=== PATIENT | female | born 1960 | race Caucasian/White ===

== ENCOUNTER 2017-12-18 08:53 | Emergency (ER) | payer OTHER ==
[2017-12-18] MEDS ORDERED: MECLIZINE HCL 12.5 MG TAB ONE (09:40)
[2017-12-18] MEDS ORDERED: NA CHLORIDE 0.9% 1,000 ML ONE (09:40)
--- NOTE | 2017-12-18 10:07 | RAD REPORT ---
EXAM DESCRIPTION: CT - Head Brain Wo Cont - 12/18/2017 9:55 am CLINICAL HISTORY: Dizziness, syncope. COMPARISON: 06/24/2012 TECHNIQUE: All CT scans are performed using dose optimization technique as appropriate and may inclu de automated exposure control or mA/KV adjustment according to patient size. FINDINGS: No intracranial hemorrhage, hydrocephalus or extra-axial fluid collection.No areas of brai n edema or evidence of midline shift. Mild mucoperiosteal thickening is present in the sphenoid sinus. The paranasal sinuses and mastoids a re otherwise clear. The calvarium is intact. IMPRESSION: No acute intracranial abnormality.
[2017-12-18 10:10] LABS: Absolute Lymphocytes (CBC) 2.7 K/uL (0.7-4.9); Absolute Monocytes 0.6 K/uL (0.1-1.3); Absolute Neutrophil 4.2 K/uL (1.8-8.0); Basophils % 0.2 % (0-1.3); Hematocrit 40.7 % (36.0-45.0); Lymphocytes % 35.4 % (15.3-44.8); MCH 29.4 pg (27.0-35.0); MCV 88.1 fL (80-100); MPV 7.6 fL (7.6-11.3); Monocytes % 8.6 % (3.3-12.3); RBC Red Blood Cell Count 4.61 M/uL (3.86-4.86)
[2017-12-18 10:14] LABS: Protime INR 1.08
[2017-12-18 10:23] LABS: Potassium 3.6 mEq/L (3.6-5.0)
[2017-12-18 10:29] LABS: Bilirubin Direct 0.1 mg/dL (0-0.2); Bilirubin Total 0.7 mg/dL (0.3-1.2); Magnesium 1.9 mg/dL (1.8-2.5); Protein, Total 7.2 g/dL (6.0-8.3)
[2017-12-18 10:32] LABS: CKMB Creatine Kinase MB 1.7 ng/ml (0.3-4.0)
--- NOTE | 2017-12-18 10:38 | RAD REPORT ---
EXAM DESCRIPTION: Nitish Single View12/18/2017 10:02 am CLINICAL HISTORY: Chest pain COMPARISON: 2016 FINDINGS: The lungs appear clear of acute infiltrate. The heart is normal size. Old rib fractures a re seen. Pleural thickening is unchanged. IMPRESSION: No acute abnormalities displayed
--- NOTE | 2017-12-18 11:43 | RAD REPORT ---
EXAM DESCRIPTION: MRI - Brain Wo Cont - 12/18/2017 11:27 am CLINICAL HISTORY: Dizziness and syncope COMPARISON: December 18, [address] TECHNIQUE: Axial, sagittal, and coronal magnetic images of the brain were obtained. Contrast was not requested FINDINGS: No significant abnormal signal is present within the brain. Diffusion-weighted/ADC mapping does not reveal evidence of acute infarction. The ventricles are normal caliber. An extra-axial fluid collection is not present Fluid is present within the sphenoid sinus. IMPRESSION: Fluid within the sphenoid sinus may indicate acute sinusitis. Unremarkable unenhanced brain MRI
[2017-12-18 13:17] LABS: Urine Blood 1+ (NEG); Urine Glucose NEGATIVE (NEG); Urine Protein NEGATIVE (NEG); Urine Specific Gravity 1.015 (1.005-1.030)
[2017-12-18] MEDS ORDERED: CEFTRIAXONE/SWI 1gm 1 GM/10 ML SYR ONE (13:40)
--- NOTE | 2017-12-18 13:40 | ER ---
Nurse's Notes [facility] Name: Guerita Rivas Age: 57 yrs Sex: Female : 1960 Arrival Date: 12/18/2017 Time: 08:55 Bed 13 Private MD: out of town, doctor Diagnosis: Acute sinusitis;Paresthesia of skin-Right Arm and Leg;Vertigo Presentation: 12/18 09:16 Presenting complaint: Patient states: dizzyness for months, worse the past month, dx ch with vertigo. had a dizzy spell last night so badly she fell to the floor, landed on her hands and knees. this morning pt started getting tingling in R arm and R leg at 0830, had a sharp headache, then dizzyness, sharp pain in R ear. c/o nausea for days. Transition of care: patient was not received from another setting of care. Onset of symptoms was December 17, 2017 at 18:00. Risk Assessment: Do you want to hurt yourself or someone else? Patient reports no desire to harm self or others. Initial Sepsis Screen: Does the patient meet any 2 criteria? No. Patient's initial sepsis screen is negative. Does the patient have a suspected source of infection? No. Patient's initial sepsis screen is negative. Care prior to arrival: None. 09:16 Method Of Arrival: Ambulatory 09:16 Acuity: RADHA 3 ch Triage Assessment: 09:21 General: Appears in no apparent distress. comfortable, Behavior is calm, cooperative, ch appropriate for age. Pain: Complains of pain in head and back Pain currently is 3 out of 10 on a pain scale. Neuro: Level of Consciousness is awake, alert, obeys commands, Oriented to person, place, time, situation, Disability Examiner are equal bilaterally Moves all extremities. Full function Gait is steady, Speech is normal, Facial symmetry appears normal, Facial symmetry: tongue is midline, Pupils are PERRLA, Reports dizziness, headache numbness tingling in R arm and leg. Respiratory: Airway is patent Respiratory effort is even, unlabored, Breath sounds are clear bilaterally. GI: Reports nausea. Derm: Skin is pink, warm \\T\\ dry. Historical: - Allergies: 09:21 No Known Allergies; ch - Home Meds: 09:21 Effexor Oral [Active]; metoprolol tartrate 25 mg Oral tab 1 tab as needed for feeling ch palpatations/pvc [Active]; - PMHx: 09: pvc; Hepatitis; "in remission"; Back pain; ch - PSHx: 09: Cholecystectomy; Tubal ligation; ch - Immunization history:: Adult Immunizations up to date, Last tetanus immunization: up to date Pneumococcal vaccine is not up to date, Flu vaccine is up to date. - Social history:: Smoking status: Patient/guardian denies using tobacco, Patient/guardian denies using alcohol, street drugs. - Ebola Screening: : Patient negative for fever greater than or equal to 101.5 degrees Fahrenheit, and additional compatible Ebola Virus Disease symptoms Patient denies exposure to infectious person Patient denies travel to an Ebola-affected area in the 21 days before illness onset No symptoms or risks identified at this time. Screenin:23 Abuse screen: Denies threats or abuse. Denies injuries from another. Nutritional ch screening: No deficits noted. Tuberculosis screening: No symptoms or risk factors identified. Fall Risk None identified. Assessment: 09:23 Reassessment: Patient appears in no apparent distress at this time. No changes from previously documented assessment. Patient and/or family updated on plan of care and expected duration. Pain level reassessed. GI: Abdomen is round non-distended, Bowel sounds present X 4 quads. Abd is soft and non tender X 4 quads. Reports nausea. 10:45 Reassessment: Patient appears in no apparent distress at this time. Patient and/or ch family updated on plan of care and expected duration. Pain level reassessed. Patient is alert, oriented x 3, equal unlabored respirations, skin warm/dry/pink. Patient states feeling better. Patient states symptoms have improved. General: Appears in no apparent distress. comfortable, Behavior is calm, cooperative, appropriate for age. 11:40 Reassessment: Patient appears in no apparent distress at this time. Patient and/or ch family updated on plan of care and expected duration. Pain level reassessed. Patient is alert, oriented x 3, equal unlabored respirations, skin warm/dry/pink. Patient states feeling better. Patient states symptoms have improved. 13:30 Reassessment: Patient appears in no apparent distress at this time. Patient and/or ch family updated on plan of care and expected duration. Pain level reassessed. Patient is alert, oriented x 3, equal unlabored respirations, skin warm/dry/pink. Patient states feeling better. Patient states symptoms have improved. 13:44 Reassessment: Patient appears in no apparent distress at this time. Patient and/or ch family updated on plan of care and expected duration. Pain level reassessed. Patient is alert, oriented x 3, equal unlabored respirations, skin warm/dry/pink. Vital Signs: 09:21 BP 134 / 80; Pulse 62; Resp 14; Temp 97.9; Pulse Ox 99% on R/A; Weight 78.02 kg; Height ch 6 ft. (182.88 cm); Pain 3/10; 10:45 BP 124 / 76; Pulse 65; Resp 14; Temp 97.9; Pulse Ox 99% on R/A; Pain 0/10; ch 11:30 BP 109 / 66 LA Supine (auto/); Pulse 77; ch 11:32 BP 111 / 83 LA Sitting (auto/); Pulse 85; ch 11:34 BP 118 / 75 LA Standing (auto/); Pulse 85; Resp 14; Temp 97.9; Pulse Ox 98% on R/A; Pain 0/10; 12:30 BP 128 / 65; Pulse 82; Resp 15; Pulse Ox 100% on R/A; mh5 13:12 BP 127 / 63; Pulse 86; Resp 17; Pulse Ox 99% on R/A; mh5 14:38 BP 126 / 78; Pulse 78; Resp 18; Temp 98.21; Pulse Ox 99% on R/A; Pain 0/10; ch 09:21 Body Mass Index 23.33 (78.02 kg, 182.88 cm) ED Course: 08:55 Patient arrived in ED. mr 08:56 out of town, doctor is Private Physician. mr 09:09 Brigitte Mallory, FREDO is Primary Nurse. ch 09:13 Mike Lew PA is PHCP. cp 09:13 Adal Charles MD is Attending Physician. cp 09:19 Triage completed. ch 09:21 Arm band placed on left wrist. Patient placed in an exam room, on a stretcher. ch 09:23 No apparent distress. Resting quietly. ch 09:23 Patient has correct armband on for positive identification. Placed in gown. Bed in low ch position. Call light in reach. Side rails up X 1. secured entrance monitor on. Pulse ox on. NIBP on. Warm blanket given. 09:23 No provider procedures requiring assistance completed. ch 09:43 EKG done, by technology coordinator. reviewed by Mike MURPHY. at1 09:53 CT completed. Patient tolerated procedure well. Patient moved to CT via wheelchair. sw Patient moved back from CT. 09:56 CT Head Brain wo Cont In Process Unspecified. EDMS 09:59 Inserted saline lock: 18 gauge in right forearm, using aseptic technique. Blood ch collected. 10:00 X-ray completed. Patient tolerated procedure well. jb2 10:01 XRAY Chest (1 view) In Process Unspecified. EDMS 10:59 Patient moved to MRI via wheelchair. em2 11:26 MRI completed. Patient tolerated well. Patient moved back from MRI. em2 11:27 MRI - Brain Wo Cont In Process Unspecified. EDMS 13:36 Gume Simms MD is Referral Physician. cp 14:38 IV discontinued, intact, bleeding controlled, No redness/swelling at site. Pressure ch dressing applied. Administered Medications: 09:59 Drug: Meclizine 25 mg Route: PO; ch 13:30 Follow up: Response: No adverse reaction; Marked relief of symptoms ch 11:42 Drug: NS 0.9% 1000 ml Route: IV; Rate: 1 bolus; Site: right forearm; ch 14:37 Follow up: IV Status: Completed infusion; IV Intake: 1000ml ch 13:45 Drug: Rocephin - (cefTRIAXone) 1 grams Route: IVPB; Infused Over: 10 mins; Site: left ch antecubital; 14:37 Follow up: IV Status: Completed infusion; IV Intake: 10ml ch Intake: 14:37 IV: 10ml; Total: 10ml. ch 14:37 IV: 1000ml; Total: 1010ml. ch Outcome: 13:40 Discharge ordered by . cp 14:38 Discharged to home ambulatory, with family. ch 14:38 Condition: stable 14:38 Discharge instructions given to patient, family, friend, Instructed on discharge instructions, follow up and referral plans. medication usage, Demonstrated understanding of instructions, follow-up care, medications, Prescriptions given X 3. 14:39 Patient left the ED. ch Signatures: Dispatcher [employer] EDMS Brigitte Mallory RN Olga Espana ch mr Ajmanny, Hector jb2 Geoff Manning em2 Nydia meléndez, electrotyper EKG Tat1 Bonnie Warren Corey, PA PA cp Martinez, Maria [facility]
--- NOTE | 2017-12-18 13:40 | EDPHYS ---
Physician Documentation [facility] Name: Guerita Rivas Age: 57 yrs Sex: Female : 1960 Arrival Date: 12/18/2017 Time: 08:55 Bed 13 Private MD: out of town, doctor ED Physician Adal Charles HPI: 12/18 09:20 This 57 yrs old Female presents to ER via Ambulatory with complaints of cp Dizziness, Nausea, Headache. 09:20 The patient presents with vertigo. Onset: The symptoms/episode began/occurred last cp year, has been intermittent, returned over past 2-3 days and became worse this morning. 09:20 Associated signs and symptoms: Pertinent positives: nausea, paresthesias of right arm cp and leg started this morning at 0830, Pertinent negatives: chest pain, diaphoresis, focal weakness, near-syncope, palpitations, syncope. Severity of symptoms: in the emergency department the symptoms have improved mildly. Patient's baseline: Neuro: alert and fully oriented, Motor: no deficits, Ambulation: walks without assistance, Speech: normal. Historical: - Allergies: 09:21 No Known Allergies; ch - Home Meds: 09:21 Effexor Oral [Active]; metoprolol tartrate 25 mg Oral tab 1 tab as needed for feeling ch palpatations/pvc [Active]; - PMHx: 09:21 pvc; Hepatitis; "in remission"; Back pain; ch - PSHx: 09:21 Cholecystectomy; Tubal ligation; ch - Immunization history:: Adult Immunizations up to date, Last tetanus immunization: up to date Pneumococcal vaccine is not up to date, Flu vaccine is up to date. - Social history:: Smoking status: Patient/guardian denies using tobacco, Patient/guardian denies using alcohol, street drugs. - Ebola Screening: : Patient negative for fever greater than or equal to 101.5 degrees Fahrenheit, and additional compatible Ebola Virus Disease symptoms Patient denies exposure to infectious person Patient denies travel to an Ebola-affected area in the 21 days before illness onset No symptoms or risks identified at this time. ROS: 09:25 Constitutional: Negative for body aches, chills, fever, poor PO intake. cp 09:25 Eyes: Negative for injury, pain, redness, and discharge. cp 09:25 ENT: Negative for drainage from ear(s), ear pain, sore throat, difficulty swallowing, difficulty handling secretions. 09:25 Neck: Negative for pain with movement, pain at rest, stiffness, swollen nodes. 09:25 Cardiovascular: Negative for chest pain, edema, palpitations. 09:25 Respiratory: Negative for cough, shortness of breath, wheezing. 09:25 Abdomen/GI: Positive for nausea, Negative for abdominal pain, vomiting, diarrhea, constipation, anorexia, black/tarry stool, rectal bleeding. 09:25 Back: Negative for pain at rest, pain with movement, radiated pain. 09:25 MS/extremity: Positive for paresthesias, of the right arm and right leg, Negative for pain, swelling, tenderness. 09:25 Skin: Negative for cellulitis, rash. 09:25 Neuro: Positive for dizziness, headache, Negative for altered mental status, syncope, near syncope, weakness. 09:25 All other systems are negative. Exam: 09:30 Constitutional: The patient appears in no acute distress, alert, awake, cp non-diaphoretic, non-toxic, well developed, well nourished. 09:30 Head/Face: Normocephalic, atraumatic. Eyes: Pupils equal round and reactive to light, cp extra-ocular motions intact. Lids and lashes normal. Conjunctiva and sclera are non-icteric and not injected. Cornea within normal limits. Periorbital areas with no swelling, redness, or edema. ENT: Nares patent. No nasal discharge, no septal abnormalities noted. Tympanic membranes are normal and external auditory canals are clear. Oropharynx with no redness, swelling, or masses, exudates, or evidence of obstruction, uvula midline. Mucous membranes moist. Neck: Trachea midline, no thyromegaly or masses palpated, and no cervical lymphadenopathy. Supple, full range of motion without nuchal rigidity, or vertebral point tenderness. No Meningismus. Chest/axilla: Normal chest wall appearance and motion. Nontender with no deformity. No lesions are appreciated. 09:30 Cardiovascular: Rate: normal, Rhythm: regular, Heart sounds: murmur, not appreciated, rub, not appreciated, gallop, not appreciated, Edema: is not appreciated, JVD: is not appreciated. 09:30 Respiratory: the patient does not display signs of respiratory distress, Respirations: normal, no use of accessory muscles, no retractions, no splinting, no tachypnea, labored breathing, is not present, Breath sounds: are clear throughout, no decreased breath sounds, no stridor, no wheezing. 09:30 Abdomen/GI: Inspection: abdomen appears normal, Bowel sounds: active, all quadrants, Palpation: abdomen is soft and non-tender, in all quadrants, rebound tenderness, is not appreciated, voluntary guarding, is not appreciated, involuntary guarding, is not appreciated. 09:30 Back: pain, is absent, ROM is normal. 09:30 Musculoskeletal/extremity: Exam is negative for calf tenderness, decreased range of motion, edema, injury. 09:30 Skin: cellulitis, is not appreciated, no rash present. 09:30 Neuro: Orientation: to person, place \\T\\ time. Mentation: lucid, able to follow commands, Cerebellar function: Romberg testing is negative, normal finger to nose testing, heel to alves testing is normal, Motor: moves all fours, strength is normal, Sensation: tingling, that is mild, of the right arm and right leg, Gait: is steady, at a normal pace, without difficulty. 09:43 ECG was reviewed by the Attending Physician. cp Vital Signs: 09:21 BP 134 / 80; Pulse 62; Resp 14; Temp 97.9; Pulse Ox 99% on R/A; Weight 78.02 kg; Height ch 6 ft. (182.88 cm); Pain 3/10; 10:45 BP 124 / 76; Pulse 65; Resp 14; Temp 97.9; Pulse Ox 99% on R/A; Pain 0/10; ch 11:30 BP 109 / 66 LA Supine (auto/); Pulse 77; ch 11:32 BP 111 / 83 LA Sitting (auto/); Pulse 85; ch 11:34 BP 118 / 75 LA Standing (auto/); Pulse 85; Resp 14; Temp 97.9; Pulse Ox 98% on R/A; Pain 0/10; 12:30 BP 128 / 65; Pulse 82; Resp 15; Pulse Ox 100% on R/A; mh5 13:12 BP 127 / 63; Pulse 86; Resp 17; Pulse Ox 99% on R/A; mh5 14:38 BP 126 / 78; Pulse 78; Resp 18; Temp 98.21; Pulse Ox 99% on R/A; Pain 0/10; ch 09:21 Body Mass Index 23.33 (78.02 kg, 182.88 cm) ch MDM: 09:13 Patient medically screened. cp 10:00 Differential diagnosis: cardiac arrhythmia, CVA, generalized weakness, GI bleed, cp hypovolemia, TIA, vertigo. 13:36 Data reviewed: vital signs, nurses notes, lab test result(s), EKG, radiologic studies, cp CT scan, MRI, and as a result, I will discharge patient. 13:38 Counseling: I had a detailed discussion with the patient and/or guardian regarding: the cp historical points, exam findings, and any diagnostic results supporting the discharge/admit diagnosis, lab results, radiology results, the need for outpatient follow up, a neurologist, to return to the emergency department if symptoms worsen or persist or if there are any questions or concerns that arise at home. 13:38 Response to treatment: the patient's symptoms have markedly improved after treatment, cp and as a result, I will discharge patient. ED course: VSS. Symptoms improved with meds. Findings of CT and MRI of brain discussed and will treat for sinusitis. Will discharge to home for continued monitoring. 12/18 09:37 Order name: Basic Metabolic Panel; Complete Time: 10:33 cp 12/18 09:37 Order name: BNP; Complete Time: 10:53 cp 12/18 09:37 Order name: CBC with Diff; Complete Time: 10:20 cp 12/18 09:37 Order name: Ckmb; Complete Time: 10:33 cp 12/18 09:37 Order name: CPK; Complete Time: 10:33 cp 12/18 09:37 Order name: LFT's; Complete Time: 10:33 cp 12/18 09:37 Order name: CT Head Brain wo Cont; Complete Time: 10:20 cp /05 10:33 Interpretation: Report reviewed. cp 12/18 09:37 Order name: Magnesium; Complete Time: 10:33 cp 12/18 09:37 Order name: PT-INR; Complete Time: 10:33 cp 12/18 09:37 Order name: Ptt, Activated; Complete Time: 10:33 cp 12/18 09:37 Order name: Troponin (emerg Dept Use Only); Complete Time: 10:33 cp 12/18 09:37 Order name: XRAY Chest (1 view); Complete Time: 10:53 cp 06/05 10:53 Interpretation: Report review. cp 12/18 10:35 Order name: MRI - Brain Wo Cont; Complete Time: 12:45 cp 05 13:11 Order name: Urine Dipstick--Ancillary (enter results); Complete Time: 13:20 bd 12/18 13:20 Interpretation: Normal except: UBLD 1+. cp /05 09:37 Order name: EKG; Complete Time: 09:38 cp /05 09:37 Order name: Cardiac monitoring; Complete Time: 09:46 cp 12/18 09:37 Order name: EKG - Nurse/Tech; Complete Time: 09:46 cp 12/18 09:37 Order name: IV Saline Lock; Complete Time: 09:46 cp 12/18 09:37 Order name: Labs collected and sent; Complete Time: 09:46 cp 12/18 09:37 Order name: O2 Per Protocol; Complete Time: 09:46 cp 05 09:37 Order name: O2 Sat Monitoring; Complete Time: 09:46 cp 12/18 09:37 Order name: Urine Dipstick-Ancillary (obtain specimen); Complete Time: 14:38 cp EC:43 Rate is 78 beats/min. Rhythm is regular. OR interval is normal. QRS interval is normal. cp QT interval is prolonged at [address] changes noted. Interpreted by me. Reviewed by me. Administered Medications: 09:59 Drug: Meclizine 25 mg Route: PO; 13:30 Follow up: Response: No adverse reaction; Marked relief of symptoms ch 11:42 Drug: NS 0.9% 1000 ml Route: IV; Rate: 1 bolus; Site: right forearm; 14:37 Follow up: IV Status: Completed infusion; IV Intake: 1000ml ch 13:45 Drug: Rocephin - (cefTRIAXone) 1 grams Route: IVPB; Infused Over: 10 mins; Site: left ch antecubital; 14:37 Follow up: IV Status: Completed infusion; IV Intake: 10ml ch Disposition: 14:49 Co-signature as Attending Physician, Adal Charles MD. rn 12/19 07:18 Co-signature as Attending Physician, Adal Charles MD. rn Disposition: 12/18/17 13:40 Discharged to Home. Impression: Acute sinusitis, Paresthesia of skin - Right Arm and Leg, Vertigo. - Condition is Stable. - Discharge Instructions: Paresthesia, Sinusitis, Adult, Vertigo. - Prescriptions for Augmentin 875- 125 mg Oral Tablet - take 1 tablet by ORAL route every 12 hours for 10 days; 20 tablet. Meclizine 25 mg Oral Tablet - take 1 tablet by ORAL route every 8 hours As needed; 30 tablet. Zofran 4 mg Oral Tablet - take 1 tablet by ORAL route every 12 hours As needed; 20 tablet. - Work release form, Medication Reconciliation Form, Thank You Letter, Antibiotic Education, Prescription Opioid Use form. - Follow up: Gume Simms MD; When: 2 - 3 days; Reason: Recheck today's complaints. - Problem is new. - Symptoms have improved. Signatures: Dispatcher [employer] EDBrigitte Israel RN RN Adal Jackson MD MD rn Page, Corey, PA PA cp Corrections: (The following items were deleted from the chart) 12/18 14:39 13:40 12/18/2017 13:40 Discharged to Home. Impression: Acute sinusitis; Paresthesia of ch skin - Right Arm and Leg; Vertigo. Condition is Stable. Forms are Medication Reconciliation Form, Thank You Letter, Antibiotic Education, Prescription Opioid Use. Follow up: Gume Simms; When: 2 - 3 days; Reason: Recheck today's complaints. Problem is new. Symptoms have improved. cp
--- NOTE | 2017-12-18 13:42 | EKG ---
Test Date: 2017-12-18 Test Time: 09:35:06 Engine Maintenance Mechanic: KAI MEASUREMENT RESULTS: Intervals: Rate: 78 [place]: 170 QRSD: 68 QT: 430 QTc: 490 [place]: P: 52 [place]: 170 QRS: 20 T: 30 INTERPRETIVE STATEMENTS: Normal sinus rhythm Prolonged QT Abnormal ECG Compared to ECG 06/30/2016 09:06:42 Prolonged QT interval now present Electronically Signed On 12-18-17 13:40:36 CDT by Taiwo Yao
[2017-12-18 15:05] VITALS: TEMP 97.9
[2017-12-18 15:12] VITALS: BP 127/63; O2SAT 99
== END 2017-12-18 14:39 | disposition home or self-care (01) ==
LOC: ER 08:53
DX: J01.90 Acute sinusitis, unspecified (principal); R20.2 Paresthesia of skin
CPT/HCPCS: 36415; 70450; 70551; 71045; 80048; 80076; 81003; 82550; 82553; 83735; 83880; 84484; 85025; 85610; 85730; 93005; 96361; 96365; 99285; J0696; J7030

== ENCOUNTER 2018-01-25 14:54 | Inpatient (IN) | payer OTHER ==
[2018-01-25] MEDS ORDERED: METOPROLOL TARTRATE 5 MG/5 ML INJ IV ONE (15:23)
[2018-01-25] MEDS ORDERED: ENOXAPARIN 80 MG/0.8 ML SQ ONE (15:24)
[2018-01-25] MEDS ORDERED: ASPIRIN 81 MG CHEWABLE TABLET ONE (15:24)
[2018-01-25 15:31] LABS: Absolute Lymphocytes (CBC) 3.1 K/uL (0.7-4.9); Absolute Monocytes 0.7 K/uL (0.1-1.3); Absolute Neutrophil 6.2 K/uL (1.8-8.0); Eosinophils % 0.1 % (0-4.4); Lymphocytes % 30.8 % (15.3-44.8); MCH 30.5 pg (27.0-35.0); MCV 88.7 fL (80-100); Monocytes % 7.2 % (3.3-12.3); RBC Red Blood Cell Count 4.62 M/uL (3.86-4.86)
[2018-01-25 15:35] LABS: Protime INR 1.1
[2018-01-25 16:04] LABS: Bilirubin Direct 0.1 mg/dL (0-0.2); Bilirubin Total 0.4 mg/dL (0.2-1.0); Magnesium 2.2 mg/dL (1.8-2.4); Potassium 3.6 mmol/L (3.5-5.1)
--- NOTE | 2018-01-25 16:18 | EDPHYS ---
Physician Documentation [facility] Name: Guerita Rivas Age: 57 yrs Sex: Female : 1960 Arrival Date: 01/25/2018 Time: 14:55 Bed 6 Private MD: Jean Ross L ED Physician Erasmo Zurita HPI: 01/25 16:26 This 57 yrs old Female presents to ER via Ambulatory with complaints of kdr Palpitations. 16:26 The patient presents with a history of irregular heart beat, heart racing, heart kdr skipping beats. Context: The symptoms occur at rest, with anxiety. Onset: The symptoms/episode began/occurred suddenly, this morning. Duration: The patient or guardian reports a single episode, that is still ongoing, and unchanged. Modifying factors: The symptoms are aggravated by nothing. The symptoms are alleviated by nothing. Associated signs and symptoms: Pertinent positives: chest pain, SOB, Pertinent negatives: cough, fever, nausea, syncope, near-syncope, unusual stressors, vertigo, vomiting. Severity of symptoms: At their worst the symptoms were mild in the emergency department the symptoms are unchanged. The patient has experienced similar episodes in the past, multiple times, but today's symptoms are worse. The patient has not recently seen a physician. Historical: - Allergies: 15:16 No Known Allergies; aj - Home Meds: 15:07 metoprolol tartrate 25 mg Oral tab 1 tab as needed for feeling palpatations/pvc dm5 [Active]; Effexor Oral [Active]; - PMHx: 15:07 Back pain; Hepatitis; "in remission"; PVC; palpitations; dm5 - PSHx: 15:07 Cholecystectomy; Tubal ligation; dm5 - Immunization history:: Adult Immunizations. - Social history:: Smoking status: Patient/guardian denies using tobacco. ROS: 16:26 Constitutional: Negative for fever, chills, and weight loss, Eyes: Negative for injury, kdr pain, redness, and discharge, ENT: Negative for injury, pain, and discharge, Neck: Negative for injury, pain, and swelling, Respiratory: Negative for shortness of breath, cough, wheezing, and pleuritic chest pain, Abdomen/GI: Negative for abdominal pain, nausea, vomiting, diarrhea, and constipation, Back: Negative for injury and pain, : Negative for injury, bleeding, discharge, and swelling, MS/Extremity: Negative for injury and deformity, Skin: Negative for injury, rash, and discoloration, Neuro: Negative for headache, weakness, numbness, tingling, and seizure activity. Psych: Negative for depression, anxiety, suicide ideation, homicidal ideation, and hallucinations, Allergy/Immunology: Negative for hives, rash, and allergies, Endocrine: Negative for neck swelling, polydipsia, polyuria, polyphagia, and marked weight changes, Hematologic/Lymphatic: Negative for swollen nodes, abnormal bleeding, and unusual bruising. 16:26 Cardiovascular: Positive for palpitations, Negative for edema, orthopnea, paroxysmal nocturnal dyspnea, acute changes. Exam: 16:26 Constitutional: This is a well developed, well nourished patient who is awake, alert, kdr and in no acute distress. Head/Face: Normocephalic, atraumatic. Eyes: Pupils equal round and reactive to light, extra-ocular motions intact. Lids and lashes normal. Conjunctiva and sclera are non-icteric and not injected. Cornea within normal limits. Periorbital areas with no swelling, redness, or edema. ENT: Nares patent. No nasal discharge, no septal abnormalities noted. Tympanic membranes are normal and external auditory canals are clear. Oropharynx with no redness, swelling, or masses, exudates, or evidence of obstruction, uvula midline. Mucous membranes moist. Neck: Trachea midline, no thyromegaly or masses palpated, and no cervical lymphadenopathy. Supple, full range of motion without nuchal rigidity, or vertebral point tenderness. No Meningismus. Chest/axilla: Normal chest wall appearance and motion. Nontender with no deformity. No lesions are appreciated. Respiratory: Lungs have equal breath sounds bilaterally, clear to auscultation and percussion. No rales, rhonchi or wheezes noted. No increased work of breathing, no retractions or nasal flaring. Abdomen/GI: Soft, non-tender, with normal bowel sounds. No distension or tympany. No guarding or rebound. No evidence of tenderness throughout. Back: No spinal tenderness. No costovertebral tenderness. Full range of motion. Female : Normal external genitalia. Skin: Warm, dry with normal turgor. Normal color with no rashes, no lesions, and no evidence of cellulitis. MS/ Extremity: Pulses equal, no cyanosis. Neurovascular intact. Full, normal range of motion. Neuro: Awake and alert, GCS 15, oriented to person, place, time, and situation. Cranial nerves II-XII grossly intact. Motor strength 5/5 in all extremities. Sensory grossly intact. Cerebellar exam normal. Normal gait. Psych: Awake, alert, with orientation to person, place and time. Behavior, mood, and affect are within normal limits. Vital Signs: 15:11 BP 128 / 76; Pulse 123; Resp 20; Temp 98.6; Pulse Ox 97% on R/A; Weight 77.11 kg; aj Height 6 ft. 0 in. (182.88 cm); 15:25 BP 111 / 56; Pulse 125; Resp 20; Pulse Ox 96% on R/A; aj 15:30 BP 100 / 61; Pulse 123; Resp 19; Pulse Ox 99% on R/A; aj 16:10 BP 102 / 59; Pulse 106; Resp 22; Pulse Ox 95% on R/A; aj 16:26 BP 90 / 68; Pulse 104; Resp 20; Pulse Ox 95% on R/A; ae1 17:00 BP 93 / 65; aa5 17:42 BP 99 / 62; Pulse 65; Resp 18 S; Pulse Ox 99% on R/A; aa5 15:11 Body Mass Index 23.06 (77.11 kg, 182.88 cm) aj MDM: 16:18 Patient medically screened. kdr 16:26 ED course: The patient was stable in the ED and had no mental status changes. She kdr states that her BP is normally low but not less than 80 SBP. 16:42 Data reviewed: vital signs, nurses notes, lab test result(s), EKG, radiologic studies. kdr Counseling: I had a detailed discussion with the patient and/or guardian regarding: the historical points, exam findings, and any diagnostic results supporting the discharge/admit diagnosis, lab results, radiology results, the need for further work-up and treatment in the hospital. 01/25 15:16 Order name: Basic Metabolic Panel; Complete Time: 16:14 kdr 01/25 15:16 Order name: CBC with Diff; Complete Time: 16:14 kdr 01/25 15:16 Order name: LFT's; Complete Time: 16:14 kdr 01/25 15:16 Order name: Magnesium; Complete Time: 16:14 [facility] 01/25 15:16 Order name: NT PRO-BNP; Complete Time: 16:14 [facility] 01/25 15:16 Order name: PT-INR; Complete Time: 16:14 [facility] 01/25 15:16 Order name: Ptt, Activated; Complete Time: 16:14 [facility] 01/25 15:16 Order name: Troponin (emerg Dept Use Only); Complete Time: 16:14 [facility] 01/25 15:16 Order name: XRAY Chest (1 view) [facility] 01/25 15:16 Order name: EKG; Complete Time: 15:16 [facility] 01/25 15:16 Order name: Cardiac monitoring; Complete Time: 15:39 [facility] 01/25 15:16 Order name: EKG - Nurse/Tech; Complete Time: 15:39 [facility] 01/25 15:16 Order name: IV Saline Lock; Complete Time: 15:39 [facility] 01/25 15:16 Order name: Labs collected and sent; Complete Time: 15:39 [facility] 01/25 15:16 Order name: O2 Per Protocol; Complete Time: 15:39 [facility] 01/25 15:16 Order name: O2 Sat Monitoring; Complete Time: 15:39 kdr Administered Medications: 15:25 Drug: Lopressor 5 mg {Note: Given one dose.} Route: IVP; Site: right antecubital; aj 15:39 Drug: Lovenox 1 mg/kg Route: Sub-Q; Site: right lower abdomen; aj 15:39 Drug: Aspirin Chewable Tablet 324 mg Route: PO; aj 16:46 Follow up: Response: No adverse reaction aj 16:35 Drug: Betapace 80 mg Route: PO; aj 16:35 Drug: NS 0.9% 500 ml Route: IV; Rate: bolus; Site: right antecubital; aj Disposition: 01/25/18 16:18 Hospitalization ordered by Marie Rocha for Inpatient Admission. Preliminary diagnosis is Atrial fibrillation and flutter. - Bed requested for Telemetry/MedSurg (Inpatient). - Status is Inpatient Admission. aa5 - Condition is Fair. - Problem is an acute exacerbation. - Symptoms have improved. UTI on Admission? No Signatures: Dispatcher [employer] Chelle Pollock RN Nydia Garza RN RN aj Rittger, Kevin, MD MD [facility] Kita Li, RN RN aa5 Regina Prince Corrections: (The following items were deleted from the chart) 17:20 16:18 Hospitalization Ordered by Marie Rocha MD for Inpatient Admission. Preliminary eb diagnosis is Atrial fibrillation and flutter. Bed requested for Telemetry/MedSurg (Inpatient). Status is Inpatient Admission. Condition is Fair. Problem is an acute exacerbation. Symptoms have improved. UTI on Admission? No. kdr 18:00 17:20 01/25/2018 16:18 Hospitalization Ordered by Marie Rocha MD for Inpatient aa5 Admission. Preliminary diagnosis is Atrial fibrillation and flutter. Bed requested for Telemetry/MedSurg (Inpatient). Status is Inpatient Admission. Condition is Fair. Problem is an acute exacerbation. Symptoms have improved. UTI on Admission? No. eb
--- NOTE | 2018-01-25 16:18 | ER ---
Nurse's Notes [facility] Name: Guerita Rivas Age: 57 yrs Sex: Female : 1960 Arrival Date: 01/25/2018 Time: 14:55 Bed 6 Private MD: Jean Ross L Diagnosis: Atrial fibrillation and flutter Presentation: 01/25 15:04 Presenting complaint: Patient states: "i'm having palpitations. I have had them before dm5 but it has never hit me this hard or lasted this long" Pt took 25 mg metoprolol at approximately 1350. Pt also reports being out of breath and that her "heart is beating out of her chest". Transition of care: patient was not received from another setting of care. Onset of symptoms was January 25, 2018 at 13:45. 15:04 Method Of Arrival: Ambulatory 5 15:04 Acuity: RADHA 2 dm5 16:26 Risk Assessment: Do you want to hurt yourself or someone else? Patient reports no ae1 desire to harm self or others. Initial Sepsis Screen: Does the patient meet any 2 criteria? No. Patient's initial sepsis screen is negative. Does the patient have a suspected source of infection? No. Patient's initial sepsis screen is negative. Care prior to arrival: None. Triage Assessment: 15:07 General: Appears in no apparent distress. uncomfortable, Behavior is cooperative, dm5 anxious. Pain: Complains of pain in jaw Pain does not radiate. Quality of pain is described as "felt weird" Pain began suddenly, Is episodic. Neuro: Level of Consciousness is awake, alert, obeys commands, Oriented to person, place, time, situation. Cardiovascular: Reports palpitations, shortness of breath, Denies diaphoresis, nausea, vomiting, Capillary refill < 3 seconds Rhythm is atrial fibrillation. Respiratory: Airway is patent Respiratory effort is even, labored, Respiratory pattern is regular. Derm: Skin is pink, warm \\T\\ dry. Historical: - Allergies: 15:16 No Known Allergies; aj - Home Meds: 15:07 metoprolol tartrate 25 mg Oral tab 1 tab as needed for feeling palpatations/pvc dm5 [Active]; Effexor Oral [Active]; - PMHx: 15:07 Back pain; Hepatitis; "in remission"; PVC; palpitations; dm5 - PSHx: 15:07 Cholecystectomy; Tubal ligation; dm5 - Immunization history:: Adult Immunizations. - Social history:: Smoking status: Patient/guardian denies using tobacco. Screenin:11 Abuse screen: Denies threats or abuse. Denies injuries from another. Nutritional aj screening: No deficits noted. Tuberculosis screening: No symptoms or risk factors identified. Fall Risk None identified. Assessment: 15:11 General: Appears in no apparent distress. comfortable, Behavior is calm, cooperative, aj appropriate for age. Neuro: Level of Consciousness is awake, alert, obeys commands, Oriented to person, place, time, situation, Appropriate for age. Cardiovascular: Reports palpitations, Capillary refill < 3 seconds in bilateral fingers. Respiratory: Respiratory: Airway is patent Respiratory effort is even, unlabored, Respiratory pattern is regular, symmetrical. Derm: Skin is intact, is healthy with good turgor, Skin is pink, warm \\T\\ dry. normal. 17:42 Reassessment: Patient is alert, oriented x 3, equal unlabored respirations, skin aa5 warm/dry/pink. Patient denies pain at this time. Cardiovascular: Rhythm is sinus rhythm. Vital Signs: 15:11 BP 128 / 76; Pulse 123; Resp 20; Temp 98.6; Pulse Ox 97% on R/A; Weight 77.11 kg; aj Height 6 ft. 0 in. (182.88 cm); 15:25 BP 111 / 56; Pulse 125; Resp 20; Pulse Ox 96% on R/A; aj 15:30 BP 100 / 61; Pulse 123; Resp 19; Pulse Ox 99% on R/A; aj 16:10 BP 102 / 59; Pulse 106; Resp 22; Pulse Ox 95% on R/A; aj 16:26 BP 90 / 68; Pulse 104; Resp 20; Pulse Ox 95% on R/A; ae1 17:00 BP 93 / 65; aa5 17:42 BP 99 / 62; Pulse 65; Resp 18 S; Pulse Ox 99% on R/A; aa5 15:11 Body Mass Index 23.06 (77.11 kg, 182.88 cm) aj ED Course: 14:55 Patient arrived in ED. sb2 14:55 Jean Ross MD is Private Physician. sb2 14:59 Erasmo Zurita MD is Attending Physician. kdr 15:06 Triage completed. dm5 15:07 Arm band placed on right wrist. dm5 15:10 EKG done, by manager technical training. reviewed by Erasmo Zurita MD. at1 15:11 Patient has correct armband on for positive identification. aj 15:11 Inserted saline lock: 20 gauge in right antecubital area, using aseptic technique. aj Blood collected. 15:18 Glenn Israel, FREDO is Primary Nurse. ae1 16:17 Marie Rocha MD is Hospitalizing Provider. kdr 16:25 XRAY Chest (1 view) In Process Unspecified. EDMS 18:08 Report given to [employer] [facility]. aj Administered Medications: 15:25 Drug: Lopressor 5 mg {Note: Given one dose.} Route: IVP; Site: right antecubital; aj 15:39 Drug: Lovenox 1 mg/kg Route: Sub-Q; Site: right lower abdomen; aj 15:39 Drug: Aspirin Chewable Tablet 324 mg Route: PO; aj 16:46 Follow up: Response: No adverse reaction aj 16:35 Drug: Betapace 80 mg Route: PO; aj 16:35 Drug: NS 0.9% 500 ml Route: IV; Rate: bolus; Site: right antecubital; aj Outcome: 16:18 Decision to Hospitalize by Provider. kdr 17:58 Admitted to Tele accompanied by tech, via wheelchair, room 406, with chart, Report aa5 called to FREDO Walsh 17:58 Condition: stable 17:58 Instructed on the need for admit, Demonstrated understanding of instructions. 18:00 Patient left the ED. aa5 Signatures: Dispatcher [employer] EDAK Chelle Troncoso, RN RN [email or web address] Nydia Callejas RN Erasmo Roth MD MD kdr Kita Li RN RN aa5 Nydia meléndez, attendant [facility] EKG Tat1 Glenn Israel, RN RN ae1 Suha Red sb2 Corrections: (The following items were deleted from the chart) 17:44 17:42 BP 99 / 62; Pulse 65bpm; Resp 18bpm; Spontaneous; Pulse Ox 99% RA; aa5 aa5
[2018-01-25] MEDS ORDERED: NA CHLORIDE 0.9% 500 ML ONE (16:29)
[2018-01-25] MEDS ORDERED: SOTALOL HCL 80 MG TAB ONE (16:29)
[2018-01-25] MEDS ORDERED: ACETAMINOPHEN 500 MG TAB PO PRN (16:40)
[2018-01-25] MEDS ORDERED: ONDANSETRON 4 MG/2 ML VIAL IV PRN (16:40)
--- NOTE | 2018-01-25 16:49 | RAD REPORT ---
EXAM DESCRIPTION: Nitish Single View01/25/2018 4:25 pm CLINICAL HISTORY: Shortness breath and palpitations COMPARISON: December 2017 FINDINGS: The lungs appear clear of acute infiltrate. The heart is normal size. Old right rib fract ures are noted. IMPRESSION: No acute abnormalities displayed
[2018-01-25] MEDS ORDERED: POTASSIUM 25 MEQ EFFERV TAB PO ONE (18:00)
--- NOTE | 2018-01-25 18:01 | P.HP ---
Certification for Inpatient Patient admitted to: Observation With expected LOS: <2 Midnights Patient will require the following post-hospital care: None Practitioner: I am a practitioner with admitting privileges, knowledge of patient current condition, hospital course, and medical plan of care. Services: Services provided to patient in accordance with Admission requirements found in Title 42 Section 412.3 of the Code of Federal Regulations Patient History Date of Service: 01/25/18 Reason for admission: Afib with RVR History of Present Illness: This is a 57-year-old female with no significant past medical history who presented to the ED complaining of having some palpitations. Patient started having palpitation this morning and took 25 mg of her metoprolol which she has at home around 150 which helped with her palpitations. Patient stated that she felt that her heart was beating out of the chest she had similar episodes in the past and had taken beta-blockers before which helped her as well. 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 No other complaints to offer at this time denies having any shortness of breath chest pain or any other associated symptoms. Allergies No Known Drug Allergies Allergy (Unverified 01/21/15 15:45) Unknown No Known Allergies Allergy (Uncoded 11/20/15 19:20) Unknown Home medications list reviewed: Yes - Past Medical/Surgical History Has patient received pneumonia vaccine in the past: Yes Diabetic: No Past Surgical History: Reviewed- Non-Contributory - Family History Family History: Reviewed- Non-Contributory - Social History Smoking Status: Never smoker Counseled patient to stop smoking for: less than 10 minutes Smoking therapy provided: No Patient receptive to therapy: No Review of Systems General: As per HPI Physical Examination - Physical Exam General: Alert, In no apparent distress HEENT: Atraumatic Neck: Supple Respiratory: Clear to auscultation bilaterally, Normal air movement Cardiovascular: Normal S1 S2, Irregular heart rate/rhythm Gastrointestinal: Normal bowel sounds, Soft and benign, Non-distended, No tenderness Musculoskeletal: No tenderness Integumentary: No rashes Neurological: Normal speech, Normal strength at 5/5 x4 extr, Normal tone Lymphatics: No axilla or inguinal lymphadenopathy - Studies Laboratory Data (last 24 hrs) 01/25/18 15:13: PT 13.0 H, INR 1.10, APTT 30.5 01/25/18 15:13: WBC 10.1, Hgb 14.1, Hct 41.0, Plt Count 297 01/25/18 15:13: Sodium 141, Potassium 3.6, BUN 21 H, Creatinine 1.30, Glucose 164 H, Magnesium 2.2, Total Bilirubin 0.4, AST 26, ALT 29, Alkaline Phosphatase 101 Assessment and Plan - Problems (Diagnosis) (1) Atrial fibrillation with RVR Current Visit: Yes Status: Acute Plan: New onset Afib with RVR. Currently Rate and Rhythm controlled. -Pt took metoprolol at home 25mg -Cardiology consulted. Awaiting Reccs -Resume Metoprolol 25mg BID and WB lovenox -ECHO pending Discharge Plan: Home Plan to discharge in: 24 Hours - Advance Directives Does patient have a Living Will: No Does patient have a Durable POA for Healthcare: No - Code Status/Comfort Care Code Status Assessed: Yes Critical Care: No
[2018-01-25 18:31] VITALS: O2SAT 99
[2018-01-25] MEDS: ENOXAPARIN 80 MG/0.8 ML SQ SCH (20:16)
[2018-01-25] MEDS: METOPROLOL XL 25 MG TAB PO SCH (20:26)
[2018-01-25 21:12] VITALS: BMI 23.0
[2018-01-26 06:06] LABS: Potassium 4.5 mmol/L (3.5-5.1)
[2018-01-26 08:05] VITALS: BP 104/53; TEMP 97
[2018-01-26 08:05] LABS: Urine Appearance CLEAR; Urine Bilirubin NEGATIVE (NEG); Urine Blood TRACE (NEG); Urine Color YELLOW; Urine Glucose NEGATIVE (NEG); Urine Protein NEGATIVE (NEG); Urine Specific Gravity 1.015 (1.005-1.030)
[2018-01-26 08:10] LABS: Urine Microscopic Reflex ORDER UMIC
[2018-01-26 08:12] LABS: Urine Bacteria <20 /HPF (<20); Urine Culture Reflex Order NOT NEEDED
[2018-01-26] MEDS: METOPROLOL XL 25 MG TAB PO SCH (09:00)
[2018-01-26] MEDS: ENOXAPARIN 80 MG/0.8 ML SQ SCH (09:25)
[2018-01-26] MEDS ORDERED: METOPROLOL XL 25 MG TAB PO SCH (10:00)
--- NOTE | 2018-01-26 10:30 | EKG ---
Test Date: 2018-01-25 Test Time: 15:03:28 Patient Financial Representative: DANN MEASUREMENT RESULTS: Intervals: Rate: 127 OK: QRSD: 66 QT: 320 QTc: 465 Lamar: P: OK: QRS: 15 T: 22 INTERPRETIVE STATEMENTS: Atrial fibrillation with rapid ventricular response Nonspecific ST and T wave abnormality, probably digitalis effect Abnormal ECG Compared to ECG 12/18/2017 09:35:06 ST (T wave) deviation now present Sinus rhythm no longer present Prolonged QT interval no longer present Electronically Signed On 01-26-18 10:27:23 CDT by Taiwo Yao
--- NOTE | 2018-01-26 10:59 | P.DS ---
Admission Date: 01/25/18 Discharge Date: 01/26/18 Disposition: ROUTINE DISCHARGE Discharge Condition: GOOD Reason for Admission: Afib with RVR Consultations: Cardiology - Problems (1) Atrial fibrillation with RVR Current Visit: Yes Status: Acute Brief History of Present Illness: This is a 57-year-old female with no significant past medical history who presented to the ED complaining of having some palpitations. Patient started having palpitation this morning and took 25 mg of her metoprolol which she has at home around 150 which helped with her palpitations. Patient stated that she felt that her heart was beating out of the chest she had similar episodes in the past and had taken beta-blockers before which helped her as well. 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 No other complaints to offer at this time denies having any shortness of breath chest pain or any other associated symptoms. Hospital Course: Overall Pt remained stable here in the hospital Pt was admitted to the hospital for new onset afib with RVR. Had taken metoprolol 25mg at home. Was in Afib but rate control in the ER. Observed over night and was seen by cardiology. Pt converted to the Regular Rhythm overnight and thus was reccommeded to Discharge home with Metoprolol 25mg Daily. Will have ECHO done outpt. [id number] is 2 and thus was asked to take ASA for anticoagulation for now. Vital Signs/Physical Exam: Temp Pulse Resp BP Pulse Ox 97.0 F 60 18 104/53 L 96 01/26/18 08:00 01/26/18 10:30 01/26/18 08:00 01/26/18 10:30 01/26/18 08:00 General: Alert, In no apparent distress HEENT: Atraumatic, PERRLA, EOMI Neck: Supple, JVD not distended Respiratory: Clear to auscultation bilaterally, Normal air movement Cardiovascular: Regular rate/rhythm, Normal S1 S2 Gastrointestinal: Normal bowel sounds, No tenderness Musculoskeletal: No tenderness Integumentary: No rashes Neurological: Normal speech, Normal tone, Normal affect Lymphatics: No axilla or inguinal lymphadenopathy Laboratory Data at Discharge: WBC 10.1 K/uL (4.3-10.9) 01/25/18 15:13 Hgb 14.1 g/dL (12.0-15.0) 01/25/18 15:13 Hct 41.0 % (36.0-45.0) 01/25/18 15:13 Plt Count 297 K/uL (152-406) 01/25/18 15:13 PT 13.0 SECONDS (9.5-12.5) H 01/25/18 15:13 INR 1.10 01/25/18 15:13 APTT 30.5 SECONDS (24.3-36.9) 01/25/18 15:13 Sodium 144 mmol/L (136-145) 01/26/18 05:14 Potassium 4.5 mmol/L (3.5-5.1) 01/26/18 05:14 BUN 24 mg/dL (7-18) H 01/26/18 05:14 Creatinine 1.00 mg/dL (0.55-1.3) 01/26/18 05:14 Glucose 85 mg/dL (74-106) 01/26/18 05:14 Magnesium 2.2 mg/dL (1.8-2.4) 01/25/18 15:13 Total Bilirubin 0.4 mg/dL (0.2-1.0) 01/25/18 15:13 AST 26 U/L (15-37) 01/25/18 15:13 ALT 29 U/L (12-78) 01/25/18 15:13 Alkaline Phosphatase 101 U/L (45-117) 01/25/18 15:13 Home Medications: Metoprolol Tartrate [Lopressor*] 25 mg PO SEECOM 01/25/18 Venlafaxine HCl [Effexor Xr] 150 mg PO DAILY 01/25/18 Aspirin [Adult Aspirin] 81 mg PO DAILY #30 tablet. 01/26/18 New Medications: Aspirin [Adult Aspirin] 81 mg PO DAILY #30 tablet. Patient Discharge Instructions: Please f/u with PCP and Dr Yao in the clinic in 1 week post discharge. New medication. Metoprolol 25mg Daily. Take 1 /2 pill in AM and 1/2 pill in PM. ASA 81 mg daily Diet: Regular Activity: Ad mae Followup: Taiwo Yao MD [ACTIVE - CAN ADMIT] - 1 Week
--- NOTE | 2018-01-26 13:45 | CON ---
Date of Consultation: 01/26/2018 Ms. Dexter is admitted to Dr. Rocha's service on 01/25/2018. The patient was seen on 01/26/2018. Reason For Consultation: Atrial fibrillation. History Of Present Illness: Ms. Rivas is a 57-year-old woman who has no significant past cardiac history except for intermittent palpitation. She has seen Dr. Ross in the past. She takes metopr olol on an as-needed basis. Apparently this has been getting much worse for her lately and she came in yesterday with an episode of rapid atrial fibrillation that resolved after one dose of IV beta-blo cker in the emergency room. She did not have any chest pain, nausea, vomiting, diaphoresis, PND, ort hopnea, pedal edema, or syncope. Allergies: SHE IS ALLERGIC TO NOTHING. Medication: Include metoprolol as needed, Dyazide, and Effexor. Past Medical History: Hypertension, depression, palpitations, and hepatitis that is in remission. Review of Systems: Negative. Social History: Negative for tobacco, alcohol, or drug abuse, but she is under a lot of stress. Family History: Noncontributory. Physical Examination: Vital Signs: Stable, afebrile. HEENT: Negative. Neck: Supple without any bruit, lymphadenopathy, JVD, or thyromegaly. Chest: Clear to auscultation and percussion. Cardiac: Revealed a regular rhythm and rate without any murmurs, gallops, or rubs. Abdomen: Benign. Extremities: Revealed no clubbing, cyanosis, or edema. Diagnostic Data: All within normal limit. She has a CT of her head, MRI, EKG; they are all normal. She has a normal rhythm now. Impression And Plan: New onset atrial fibrillation that resolved. She has a low CHADS score. She h as had recent cardiac workup and that has been negative. I would be sufficient with aspirin, metopro lol on a daily basis at 12.5 mg b.i.d. The case was discussed with Dr. Rocha. Her blood pressure is fairly well controlled. I am not so sure the Dyazide is not contributing to her irregular heartbeat with possibly some electrolyte shift and if we can do without it that would be good. I am going to have her come to the office in the near future, have an echocardiogram, and maybe another stress test just to be on the safe side. If her metoprolol fails or it makes her hypotensive as it has in the p ast, we may have to consider other option such as Betapace. RAFAEL/MAN Voice ID: [id number] Report ID: [id number]
== END 2018-01-26 11:10 | disposition home or self-care (01) | DRG 310 ==
LOC: ER 14:54 → ERHOLD 16:32 → 4TH 17:57
PROVIDERS: ADMIT Family Medicine; ATTEND Family Medicine
DX: I48.91 Unspecified atrial fibrillation (principal); I10 Essential (primary) hypertension; F32.9 Major depressive disorder, single episode, unspecified
CPT/HCPCS: 36415; 71045; 80048; 80076; 81003; 81015; 83735; 83880; 84484; 85025; 85610; 85730; 93005; 96372; 96374; 99285; J1650